=== PATIENT | female | born 1990 | race Caucasian/White ===

== ENCOUNTER → 2016-09-03 | Outpatient (CLI) | payer OTHER ==
--- NOTE | 2016-09-04 09:39 | MRI ---
STUDY: MRI OF THE LUMBAR SPINE HISTORY: Lumbar disc herniation. Low back pain. Comparison: None. Technique: Multiplanar multi-sequence MRI of the lumbar spine was obtained. Sagittal T1, sagittal T 2, and STIR images, axial T1, and axial T2 images were obtained. Findings: There is subtle grade 1 anterolisthesis of L5 on S1. There is a shallow disc bulge with un covering of the posterior aspect of the L5/S1 intervertebral disc. This effaces the ventral thecal s ac, but there is no significant spinal stenosis. There is mild degenerative endplate change at the a nterior superior aspect of L4. Vertebral body heights are within normal limits. There is a region o f T2 hyperintensity and T1 hypo intensity within a portion of the subcutaneous fat in the midline, s uperficial to the spinous processes. This extends from approximately the level of L1-L3. The conus m edullaris is normal and appearance terminating at the level of L1. Axial images: T12 -- L1: Normal. L1 -- L2: Normal. L2 -- L3: Normal. L3 -- L4: Normal. L4 -- L5: Normal. L5 -- S1: There is grade 1 anterolisthesis of L5 on S1. There is associated uncovering of the permastone mechanic ior aspect of the intervertebral disc, and a broad-based disc bulge. This effaces the ventral thecal epidural space and contacts the thecal sac. However, there is no evidence of significant central ca nal stenosis. IMPRESSION: 1. Degenerative disk disease with uncovering of the posterior aspect of the L5/S1 disc. There is eff acement of the anterior epidural space, but no significant spinal stenosis at this level. 2. Subtle grade 1 anterolisthesis of L5 on S1. 3. Signal abnormality in the subcutaneous soft tissues in the midline from L1-L3. This has the appea kusum of focal soft tissue edema. No organized fluid collection is identified. Clinical correlation for prior soft tissue injury is recommended. Reported By:
== END ==
LOC: RAD 14:21
PROVIDERS: ATTEND Psychiatry & Neurology Neurology
DX: M51.16 Intervertebral disc disorders with radiculopathy, lumbar region (principal)
CPT/HCPCS: 72148

== ENCOUNTER → 2016-10-01 | Outpatient (CLI) | payer OTHER | LOC: RT 13:07 | PROVIDERS: ATTEND Psychiatry & Neurology Neurology | DX: M51.16 Intervertebral disc disorders with radiculopathy, lumbar region (principal) | CPT/HCPCS: 95909 ==